=== PATIENT | male | born 1945 | race Caucasian/White ===

== ENCOUNTER 2020-11-28 10:40 | Inpatient (IN) | payer MEDICARE ==
[~2020-11-28] VITALS: Ht 172.7 cm; Wt 103.4 kg
--- NOTE | 2020-11-28 10:58 | NUR ---
PATIENT IS SOB WITH RESPIRATORY RATE OF 38. SPO2 @ 92-94%. O2 ON AT 2L/M VIA NC.
--- NOTE | 2020-11-28 11:00 | NUR ---
PATIENT PLACED IN DROPLET ISOTATION AND SWABS COLLECTED FOR COVID ANTIGEN AND PCR.
--- NOTE | 2020-11-28 11:15 | NUR ---
O2 INCREASED TO 4L/M. SPO2 90-92%.
[2020-11-28 11:34] LABS: HEMATOCRIT 45.5 % (42.0-54.0); HEMOGLOBIN 14.8 g/dL (13.5-17.5); MCH 30.6 pg (26.0-34.0); MCHC 32.5 g/dL (31.0-37.0); MEAN PLATELET VOLUME 9.7 fL (7.4-10.4); RBC 4.84 10x6/uL (4.20-6.10); RDW 14.2 % (11.5-14.5); WBC 5.8 10x3/uL (4.8-10.8)
[2020-11-28 11:43] LABS: PLATELET COUNT 381 10x3/uL (130-400)
--- NOTE | 2020-11-28 11:45 | NUR ---
DR ANDERSON AT BEDSIDE. TURNED O2 OFF TO OBTAIN ABG ON ROOM AIR.
[2020-11-28 11:49] LABS: APTT 30.1 SECONDS (22.8-39.4); INR 1.48 (0.85-1.17); PROTIME 16.6 SECONDS (11.6-15.0)
[2020-11-28 11:50] LABS: D-DIMER-QUANTITATIVE 0.76 ug/mLFEU (0.20-0.54)
[2020-11-28 11:55] LABS: CALC OSMOLALITY 276 mosm/kg (275-300); CALCIUM 8.9 mg/dL (8.5-10.1); CARBON DIOXIDE 32.8 mmol/L (21.0-32.0); CHLORIDE - SERUM 100 mmol/L (98-107); CREATININE - SERUM 1.1 mg/dL (0.6-1.3); GLUCOSE 91 mg/dL (74-106); POTASSIUM - SERUM 4.5 mmol/L (3.5-5.1); SODIUM 136 mmol/L (136-145); UREA NITROGEN 26 mg/dL (7-18); eGFR NON AFRICAN AMERICAN 69 mL/min (90-120)
--- NOTE | 2020-11-28 12:01 | NUR ---
ABG DONE. PO2 57 AND SPO2 89%. O2 ON AT 2L/M PER RT.
[2020-11-28 12:03] LABS: BASOPHILS 1 % (0-2); EOSINOPHILS 6 % (0-7); LYMPHOCYTES 34 % (15-50); NEUTROPHILS 57 % (40-80); PLATELET ESTIMATE NORMAL
[2020-11-28 12:14] LABS: ALBUMIN 2.8 g/dL (3.4-5.0); ALKALINE PHOSPHATASE 102 U/L (30-120); ALT (SGPT) 36 U/L (10-68); BILIRUBIN - TOTAL 0.27 mg/dL (0.2-1.3); CKMB 0.6 U/L (0.0-3.6); CREATINE KINASE 43 UL (21-232); LIPASE 92 U/L (73-393); PRO BNP 182 pg/mL (0-450); PROTEIN - SERUM 7.6 g/dL (6.4-8.2)
[2020-11-28 12:20] LABS: TROPONIN-I 0.087 ng/mL (0.000-0.060)
[2020-11-28 12:22] LABS: SARS-CoV-2 ANTIGEN NEGATIVE- SARS-COV-2 (NEGATIVE)
--- NOTE | 2020-11-28 15:05 | NUR ---
[facility] IN [place] CALLED TO OBTAIN COVID TEST RESULTS FROM 11/01. AWAITING FAX.
[2020-11-28] MEDS ORDERED: LISINOPRIL2.5 MG PO (15:30)
[2020-11-28] MEDS ORDERED: XARELTO20 MG PO (15:30)
[2020-11-28] MEDS ORDERED: LASIX80 MG PO (15:31)
[2020-11-28] MEDS ORDERED: OMEPRAZOLE20 M1 PO (15:31)
[2020-11-28] MEDS ORDERED: BETAPACE160 MG PO (15:32)
[2020-11-28] MEDS ORDERED: TOPROL XL25 MG PO (15:33)
--- NOTE | 2020-11-28 16:18 | NUR ---
TRANSFERRED TO [facility] [address] VIA WHEELCHAIR. PATIENT ABLE TO WALK SHORT DISTANCE WITHOUT SOB. STATES "I FEEL MUCH BETTER NOW". HANDOFF TO ESTER DAUGHERTY.
[2020-11-28 16:38] LABS: CKMB 0.3 U/L (0.0-3.6); CREATINE KINASE 37 UL (21-232); TROPONIN-I 0.081 ng/mL (0.000-0.060)
[2020-11-28 16:40] VITALS: Ht 172.7 cm; Wt 103.4 kg
--- NOTE | 2020-11-28 19:45 | NUR ---
ASSESSMENT COMPLETED. LEADS REPLACED. AAOX4. CLIR. BED IN LOWEST POSITION. WILL CONT TO MONITOR.
[2020-11-28 21:07] VITALS: BP 116/67
--- NOTE | 2020-11-28 23:00 | NUR ---
PATIENT RESTING IN BED WATVHING TV. NO S/S OF DISTRESS. AAOX4. CLIR. BED IN LOWEST POSITION. WILL CONT TO MONITOR.
[2020-11-29 04:36] LABS: BASOPHILS 0 % (0-2); EOSINOPHILS 0.1 % (0-7); HEMATOCRIT 43.7 % (42.0-54.0); HEMOGLOBIN 14.2 g/dL (13.5-17.5); IMMATURE GRANULOCYTES 1.1 % (0-5); LYMPHOCYTES 15.7 % (15-50); MCHC 32.5 g/dL (31.0-37.0); MCV 92.4 fL (80.0-100.0); MONOCYTES 7.8 % (2-11); NEUTROPHIL ABS# 5.28 10x3/uL (1.78-5.38); NEUTROPHILS 75.3 % (40-80); PLATELET COUNT 407 10x3/uL (130-400); RBC 4.73 10x6/uL (4.20-6.10); RDW 14.1 % (11.5-14.5)
[2020-11-29 04:51] LABS: ALBUMIN 2.6 g/dL (3.4-5.0); ANION GAP 11.4 mmol/L (8-16); BILIRUBIN - TOTAL 0.24 mg/dL (0.2-1.3); CALCIUM 8.5 mg/dL (8.5-10.1); CARBON DIOXIDE 27.1 mmol/L (21.0-32.0); CREATININE - SERUM 1.1 mg/dL (0.6-1.3); MAGNESIUM - SERUM 2.2 mg/dL (1.8-2.4); POTASSIUM - SERUM 4.5 mmol/L (3.5-5.1); PROTEIN - SERUM 7.9 g/dL (6.4-8.2)
[2020-11-29 08:50] VITALS: BP 123/71
[2020-11-29 13:24] VITALS: BP 108/72
[2020-11-29 16:44] VITALS: BP 100/62
[2020-11-29 20:57] VITALS: BP 119/62
--- NOTE | 2020-11-29 21:15 | NUR ---
PT AWAKE ALERT SITTING ON SIDE OF BED DECLINES TO TAKE LASX HE TAKES THIS AT 2PM AT HOME AND DOES NOT WISH TO BE UP ALL NIGHT. REQUESTED MELATONIN NO DISTRESS NOTED DENIES ANY NEEDS WILL CONTINUE TO MONITOR
[2020-11-30 04:38] VITALS: BP 109/68
[2020-11-30 04:45] LABS: BASOPHILS 0.5 % (0-2); EOSINOPHILS 1.7 % (0-7); HEMATOCRIT 42.5 % (42.0-54.0); HEMOGLOBIN 13.6 g/dL (13.5-17.5); IMMATURE GRANULOCYTES 1.1 % (0-5); LYMPHOCYTE ABS# 1.75 10x3/uL (1.32-3.57); LYMPHOCYTES 22.2 % (15-50); MCV 93.8 fL (80.0-100.0); MEAN PLATELET VOLUME 9.8 fL (7.4-10.4); MONOCYTES 13.6 % (2-11); NEUTROPHIL ABS# 4.79 10x3/uL (1.78-5.38); NEUTROPHILS 60.9 % (40-80); PLATELET COUNT 384 10x3/uL (130-400); RBC 4.53 10x6/uL (4.20-6.10); RDW 14.5 % (11.5-14.5); WBC 7.9 10x3/uL (4.8-10.8)
[2020-11-30 05:17] LABS: ALBUMIN 2.5 g/dL (3.4-5.0); ANION GAP 8.4 mmol/L (8-16); BILIRUBIN - TOTAL 0.28 mg/dL (0.2-1.3); CALCIUM 8.2 mg/dL (8.5-10.1); CARBON DIOXIDE 29.8 mmol/L (21.0-32.0); CREATININE - SERUM 1.1 mg/dL (0.6-1.3); MAGNESIUM - SERUM 2.2 mg/dL (1.8-2.4); POTASSIUM - SERUM 4.2 mmol/L (3.5-5.1); PROTEIN - SERUM 7.1 g/dL (6.4-8.2)
[2020-11-30 07:45] VITALS: BP 93/61
[2020-11-30] MEDS ORDERED: VENTOLIN HFA [SP8 GM INH (13:17)
[2020-11-30] MEDS ORDERED: AZITHROMYCIN500 MG PO (13:17)
--- NOTE | 2020-11-30 15:23 | NUR ---
DISCHARGE INSTRUCTIONS PROVIDED TO PATIENT. PATIENT VERBALIZED UNDERSTANDING. PRINTED PRESCRIPTIONS GIVEN. DISCHARGED VIA WHEELCHAIR TO VEHICLE WITH .
--- NOTE | 2020-11-30 17:21 | MORECARE ---
CASE MANAGEMENT DISCHARGE SUMMARY PATIENT: ISABELLA CASAREZ UNIT: [id number] ADM DATE: 11/28/20 AGE: 75 : 45 SEX: M ROOM/BED: D.4066 AUTHOR: JIM HERNÁNDEZ PHYSICIAN: REFERRING PHYSICIAN: BAHMAN LONG MD DATE OF SERVICE: 11/30/20 Discharge Plan Patient Name: ISABELLA CASAREZ Facility: [facility]:[place] : 1945 Planned Disposition: Home Anticipated Discharge Date: 11/30/20 Discharge Date: 11/30/2020 Expected LOS: 2 Initial Reviewer: [email or web address] Initial Review Date: 11/28/2020 Generated: 11/30/20 6:21 pm Comments DCP- Discharge Planning Updated by [email or web address]: Henri Dalal on 11/30/20 4:[address] Telephone conversation with patient at 1420 on 30 November 2020 to complete DC plan and needs. Patient lives at home independently with his spouse, Maya. At discharge patient plans to return home and feels this is a safe discharge. Patient declined HHS. Patient voiced no other needs at this time and is satisfied with DC plan. Transportation provider at discharge will be with his Maya. DC IMM telephonically explained, signed, and placed on chart per current Isolation protocols. A copy of DC IMM will be given to patient at DC with DC paperwork. CM will continue to follow and will assist as needed with dc plans/needs. Coverage Notice Reviewer: [id number] - Henri Dalal Notice Issued Date-Time: 11/30/2020 14:20 Notice Type: IM Discharge Notice Notice Delivered To: Patient Relationship to Patient: Self Administrative Sales Assistant Name: Delivery Method: HAND - Hand Delivered Karlene Days: Prior Verbal Notification: Recipient Understood Notice: Yes Recipient Signature: Yes Med Rec Note Co-signed by Attending: Coverage Notice Comment: DC IMM telephonically explained, signed, and placed on chart per current Isolation protocols. Patient Name: ISABELLA CASAREZ Page [phone] at 1721 All edits/amendments must be made on the electronic document DICTATION DATE: 11/30/20 1721 MACHINE STRAP BUCKLER: VERONIKA 11/30/20 172 RPT#: [id number] DC DATE:11/30/20 STATUS: DIS IN [facility] [address] [place] [address] END OF REPORT
--- NOTE | 2020-11-30 17:50 | MORECARE ---
CASE MANAGEMENT DISCHARGE SUMMARY PATIENT: ISABELLA CASAREZ UNIT: [id number] ADM DATE: 11/28/20 AGE: 75 : 45 SEX: M ROOM/BED: D.2131 AUTHOR: BETTY,DOC PHYSICIAN: REFERRING PHYSICIAN: BAHMAN LONG MD DATE OF SERVICE: 11/30/20 Discharge Plan Patient Name: ISABELLA CASAREZ Facility: [facility]:[place] : 1945 Planned Disposition: Home Anticipated Discharge Date: 11/30/20 Discharge Date: 11/30/2020 Expected LOS: 2 Initial Reviewer: [email or web address] Initial Review Date: 11/28/2020 Generated: 11/30/20 6:49 pm Comments DCP- Discharge Planning Updated by [id number]: Henri Dalal on 11/30/20 4:[address] Telephone conversation with patient at 1420 on 30 November 2020 to complete DC plan and needs. Patient lives at home independently with his spouse, Maya. At discharge patient plans to return home and feels this is a safe discharge. Patient declined HHS. Patient voiced no other needs at this time and is satisfied with DC plan. Transportation provider at discharge will be with his Maya. DC IMM telephonically explained, signed, and placed on chart per current Isolation protocols. A copy of DC IMM will be given to patient at DC with DC paperwork. CM will continue to follow and will assist as needed with dc plans/needs. DCPIA - Discharge Planning Initial Assessment Updated by [id number]: Henri Dalal on 11/30/20 5:44 pm * Is the patient Alert and Oriented? Yes * PCP TEAM [address] [facility] * Pharmacy [facility] * Preadmission Environment Home with Family * ADLs Independent * Equipment None * Other Equipment n/a * List name and contact numbers for known caregivers / representatives who currently or will assist patient after discharge: oYon Casarez (dtr) [phone] Maya Casarez * Verbal permission to speak to the caregivers and representatives has been obtained from the patient. Yes * Community resources currently utilized None * Please name any agencies selected above. n/a * Additional services required to return to the preadmission environment? No * Can the patient safely return to the preadmission environment? Yes * Has this patient been hospitalized within the prior 30 days at any hospital? No Coverage Notice Reviewer: [id number] Jodi Dalal Notice Issued Date-Time: 11/30/2020 14:20 Notice Type: IM Discharge Notice Notice Delivered To: Patient Relationship to Patient: Self Automatic Profile Sander Operator Name: Delivery Method: HAND - Hand Delivered Karlene Days: Prior Verbal Notification: Recipient Understood Notice: Yes Recipient Signature: Yes Med Rec Note Co-signed by Attending: Coverage Notice Comment: DC IMM telephonically explained, signed, and placed on chart per current Isolation protocols. Last DP export: 11/30/20 4:21 p Patient Name: ISABELLA CASAREZ Page [phone] at 1750 All edits/amendments must be made on the electronic document DICTATION DATE: 11/30/[address] RO[address] FREIGHT CONDUCTOR: VERONIKA 11/30/201748 RPT#: [id number] DC DATE:11/30/20 STATUS: DIS IN [facility] [address] [place] [address] END OF REPORT
--- NOTE | 2020-12-02 08:28 | MORECARE ---
CASE MANAGEMENT DISCHARGE SUMMARY PATIENT: ISABELLA CASAREZ UNIT: [id number] ADM DATE: 11/28/20 AGE: 75 : 45 SEX: M ROOM/BED: D.1387 AUTHOR: BETTY,DOC PHYSICIAN: REFERRING PHYSICIAN: BAHMAN LONG MD DATE OF SERVICE: 12/02/20 Discharge Plan Patient Name: ISABELLA CASAREZ Facility: [facility]:[place] : 1945 Planned Disposition: Home Anticipated Discharge Date: 11/30/20 Discharge Date: 11/30/2020 Expected LOS: 2 Initial Reviewer: [email or web address] Initial Review Date: 11/28/2020 Generated: 12/02/20 9:27 am Comments DCP- Discharge Planning Updated by [email or web address]: Henri Dalal on 11/30/20 3:[address] Telephone conversation with patient at 1420 on 30 November 2020 to complete DC plan and needs. Patient lives at home independently with his spouse, Maya. At discharge patient plans to return home and feels this is a safe discharge. Patient declined HHS. Patient voiced no other needs at this time and is satisfied with DC plan. Transportation provider at discharge will be with his Maya. DC IMM telephonically explained, signed, and placed on chart per current Isolation protocols. A copy of DC IMM will be given to patient at DC with DC paperwork. CM will continue to follow and will assist as needed with dc plans/needs. DCPIA - Discharge Planning Initial Assessment Updated by [id number]: Henri Dalal on 11/30/20 5:44 pm * Is the patient Alert and Oriented? Yes * PCP TEAM 3 at [facility] * Pharmacy [facility] * Preadmission Environment Home with Family * ADLs Independent * Equipment None * Other Equipment n/a * List name and contact numbers for known caregivers / representatives who currently or will assist patient after discharge: Yoon Casarez (dtr) [phone] Maya Casarez * Verbal permission to speak to the caregivers and representatives has been obtained from the patient. Yes * Community resources currently utilized None * Please name any agencies selected above. n/a * Additional services required to return to the preadmission environment? No * Can the patient safely return to the preadmission environment? Yes * Has this patient been hospitalized within the prior 30 days at any hospital? No Coverage Notice Reviewer: [id number] Jodi Dalal Notice Issued Date-Time: 11/30/2020 14:20 Notice Type: IM Discharge Notice Notice Delivered To: Patient Relationship to Patient: Self Radio Frequency Design Engineer Name: Delivery Method: HAND - Hand Delivered Karlene Days: Prior Verbal Notification: Recipient Understood Notice: Yes Recipient Signature: Yes Med Rec Note Co-signed by Attending: Coverage Notice Comment: DC IMM telephonically explained, signed, and placed on chart per current Isolation protocols. Last DP export: 11/30/20 3:50 p Patient Name: ISABELLA CASAREZ Page [phone] at 0828 All edits/amendments must be made on the electronic document DICTATION DATE: 12/02/20827 CERTIFIED CREDIT COUNSELOR: VERONIKA 12/02/20827 RPT#: [id number] DC DATE:11/30/20 STATUS: DIS IN [facility] [address] [place] [address] END OF REPORT
== END 2020-11-30 15:24 | disposition home or self-care (01) | DRG 177 ==
LOC: D.ER 10:40 → D.EDHOLD 13:43 → D.M2 13:43
PROVIDERS: Emergency Medicine; ADMIT Family Medicine; ATTEND Family Medicine
DX: U07.1 COVID-19 (principal); J12.82 Pneumonia due to coronavirus disease 2019; I21.A1 Myocardial infarction type 2; J96.01 Acute respiratory failure with hypoxia; I11.0 Hypertensive heart disease with heart failure; I50.9 Heart failure, unspecified; Z87.891 Personal history of nicotine dependence